=== PATIENT | female | born 1965 | race Caucasian/White ===

== ENCOUNTER 2017-10-27 12:23 | Emergency (ER) | payer OTHER, SELFPAY ==
[2017-10-27 13:23] LABS: #Eosinphils 0.1 thou/uL (0.0-0.7); #Lymphocytes 1.8 thou/uL (1.20-3.40); #Monocytes 0.3 thou/uL (0.11-0.59); #Neutrophils 2.9 thou/uL (1.40-6.50); %Basophils 0.3 % (0.0-1.0); %Eosinophils 1.4 % (0.0-10.0); %Lymphocytes 35.5 % (21.0-51.0); %Monocytes 6.7 % (0.0-10.0); %Neutrophils 56.1 % (42.0-75.0); Mean Corpuscular HGB CONC 33.4 g/dL (32.0-36.0); Mean Corpuscular Hemoglobin 32.7 pg (27.0-31.0); Mean Platelet Volume 6.9 fL (7.4-10.4); Platelet Count 272 thou/uL (130-400); RBC Distribution Width 12.7 % (11.5-14.5); Red Blood Cell (RBC) Count 4.26 mill/uL (4.20-5.40); White Blood Cell (WBC) Count 5.2 thou/uL (4.8-10.8)
[2017-10-27] MEDS ORDERED: ISOVUE-370 76%-LOCM 1 ML ONE (13:26)
[2017-10-27 13:35] LABS: D-Dimer Test Less than 0.27 *mcg/mL (0.27-0.43)
--- NOTE | 2017-10-27 13:48 | CT ---
CTA CHEST WITH CONTRAST: HISTORY: Chest pain. History of embolism. COMPARISON: CTA chest 06/15/16. TECHNIQUE: CT angiogram chest is performed after intravenous administration of contrast. Three-D rendering prov ided. FINDINGS: There is extensive mix artifact of the main pulmonary trunk and left and right pulmonary arteries. N o proximal seminal pulmonary arterial filling defect is present. There is a web within the segmental branch of the lingular pulmonary arteries from an old embolism. Heart size is normal. No pericardial effusion. Aortic contour is normal. The liver, spleen, and pancreas are unremarkable. Adrenal glands are unre markable. No thoracic spine compression fracture. No displaced rib fracture. IMPRESSION: 1. No acute pulmonary embolism. 2. 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 POS: [facility]
[2017-10-27 13:50] LABS: ALT (SGPT) 13 U/L (8-55); AST (SGOT) 15 U/L (5-34); Albumin 4.1 g/dL (3.5-5.0); Alkaline Phosphatase 84 U/L (40-150); Anion Gap 13 mmol/L (10-20); BUN (Urea Nitrogen) 10 mg/dL (9.8-20.1); Bilirubin, Total 0.3 mg/dL (0.2-1.2); Calc. Creatinine Clearance 0 mL/min (70-130); Carbon Dioxide 25 mmol/L (22-29); Chloride 102 mmol/L (98-107); Estimated GFR-MDRD 88; Globulin 3.5 g/dL (2.4-3.5); Glucose 116 mg/dL (70-105); Potassium 3.7 mmol/L (3.5-5.1); Protein, Total 7.6 g/dL (6.0-8.3); Sodium 136 mmol/L (136-145)
== END 2017-10-27 13:52 | disposition home or self-care (01) ==
LOC: ERS 12:23
DX: S46.911A Strain of unspecified muscle, fascia and tendon at shoulder and upper arm level, right arm, initial encounter (principal); I25.2 Old myocardial infarction; G40.909 Epilepsy, unspecified, not intractable, without status epilepticus; Z87.891 Personal history of nicotine dependence; Z86.711 Personal history of pulmonary embolism; X50.0XXA Overexertion from strenuous movement or load, initial encounter
CPT/HCPCS: 71275; 80053; 85025; 85379; 85610

== ENCOUNTER 2018-11-16 10:59 | Outpatient (CLI) | payer OTHER ==
--- NOTE | 2018-11-16 12:51 | CT ---
CT HEAD NONCONTRAST: History: Right head injury. Comparison: 02-11-07 FINDINGS: There is no evidence of acute intracranial hemorrhage or infarct. Ventricles appear normal in size, s hape, and position. There is no mass effect or shift of midline structures. Visualized paranasal sinu ses remain well aerated. IMPRESSION: No acute intracranial abnormalities are demonstrated. POS: [facility]
--- NOTE | 2018-11-16 13:08 | CT ---
CT MAXILLOFACIAL WITHOUT CONTRAST: 11/16/2018 HISTORY: A 53-year-old female status post acute facial trauma. FINDINGS: There is no fracture. Orbits are clear. The paranasal sinuses are clear. There is infiltrate in th e subcutaneous fat superficial to the platysma muscle, lateral to the right submandibular space and l ateral to the right sternocleidomastoid muscle. Some of the infiltrate extends into the right subman dibular space. The right submandibular gland is normal. IMPRESSION: 1. Acute traumatic contusion in the superficial soft tissues of the right posterior submandibular ne ck. 2. No fracture. POS: [facility]
== END 2018-11-16 11:00 | disposition home or self-care (01) ==
LOC: BICCT 10:59
PROVIDERS: ATTEND Family Medicine
DX: S52.514A Nondisplaced fracture of right radial styloid process, initial encounter for closed fracture (principal); S13.4XXA Sprain of ligaments of cervical spine, initial encounter; S60.221A Contusion of right hand, initial encounter; S00.03XA Contusion of scalp, initial encounter; S00.91XA Abrasion of unspecified part of head, initial encounter; S00.411A Abrasion of right ear, initial encounter; S10.93XA Contusion of unspecified part of neck, initial encounter
CPT/HCPCS: 70450; 70486